=== PATIENT | female | born 1955 | race American Indian/Alaskan Native ===

== ENCOUNTER 2018-05-21 21:53 | Emergency (ER) | payer OTHER ==
[~2018-05-21] VITALS: Ht 154.9 cm; Wt 72.6 kg
[2018-05-21 21:53] VITALS: BP_SYST 154
[2018-05-21 22:20] LABS: BILIRUBIN,URINE NEGATIVE (NEGATIVE); CLARITY/URINE SL HAZY (CLEAR); COLOR,URINE YELLOW (YELLOW); GLUCOSE,URINE 3+ (NEGATIVE); KETONES,URINE NEGATIVE (NEGATIVE); LEUKOCYTE ESTERASE ,URINE NEGATIVE (NEGATIVE); NITRITE, URINE NEGATIVE (NEGATIVE); PH,URINE 7.5 (5.0-8.0); PROTEIN URINE 3+ (NEGATIVE); UROBILINOGEN,URINE 0.2 (0.2-1.0)
[2018-05-21 22:21] LABS: BLOOD, URINE TRACE (NEGATIVE)
[2018-05-21 22:32] LABS: BACTERIA,URINE FEW /HPF (None Seen); MUCUS,URINE 1+ /LPF (None Seen)
[2018-05-21 22:32] LABS: CREATININE 4.65 mg/dL (0.55-1.30); POTASSIUM 4.2 mmol/L (3.5-5.1)
[2018-05-21 22:34] LABS: BASOPHILS % (AUTO) 0.4 % (0.0-2.0); EOSINOPHILS # (AUTO) 0.3 K/uL (0.0-0.4); EOSINOPHILS % (AUTO) 5.1 % (0.0-4.0); HEMATOCRIT 34.1 % (36-48); HEMOGLOBIN 11.3 g/dL (12.0-16.0); MEAN CORPUSCULAR HEMOGLOBIN 29 pg (27-31); MEAN CORPUSCULAR HGB CONC 33 % (32-36); MEAN CORPUSCULAR VOLUME 87 fL (79.0-98.0); MONOCYTES # (AUTO) 0.7 K/uL (0.0-1.0); MONOCYTES % (AUTO) 11.2 % (1.7-9.3); NEUTROPHILS # (AUTO) 4.1 K/uL (1.8-7.7); NEUTROPHILS % (AUTO) 66.3 % (40.0-70.0); PLATELET COUNT (AUTO) 185 K/uL (130-430); RED BLOOD CELL COUNT(AUTO) 3.92 MIL/uL (4.2-6.2); RED CELL DISTRIBUTION WIDTH 13.8 % (9.0-15.0); WHITE BLOOD COUNT (AUTO) 6.1 K/uL (4.8-10.8)
[2018-05-21] MEDS ORDERED: FURO-149 PO (22:35)
[2018-05-21] MEDS ORDERED: CYCL-10 PO (22:35)
[2018-05-21] MEDS ORDERED: CLOP300T2 PO (22:35)
[2018-05-21] MEDS ORDERED: HYDR-4272 PO (22:35)
[2018-05-21] MEDS ORDERED: COR25 PO (22:35)
[2018-05-21] MEDS ORDERED: ISOS30TA6 PO (22:35)
[2018-05-21] MEDS ORDERED: LIP80 PO (22:35)
[2018-05-21] MEDS ORDERED: CALC667T5 PO (22:35)
[2018-05-21 22:36] LABS: INR 1.1 (0.8-1.2); PROTHROMBIN TIME 10.9 SECS (9.5-12.5)
[2018-05-21 22:39] LABS: TOTAL BILIRUBIN 0.7 mg/dL (0.0-1.0)
[2018-05-21 23:05] LABS: CKMB RELATIVE INDEX 0.6 (0.0-2.9); CREATINE KINASE MB 1.6 ng/mL (0-3.6)
[2018-05-21] MEDS ORDERED: NACL 0.9% 500 ML IV ONE (23:30)
[2018-05-21] MEDS ORDERED: MORPHINE 4 MG/ML INJ. SYRINGE IVP ONE (23:30)
[2018-05-22] MEDS ORDERED: METOPROLOL TARTRATE 5 MG/5 ML VIAL IVP ONE (02:15)
[2018-05-22 02:48] VITALS: BP_SYST 172
== END 2018-05-22 02:48 | disposition short-term general hospital (02) ==
LOC: SED 21:53
DX: K85.90 Acute pancreatitis without necrosis or infection, unspecified (principal); I25.2 Old myocardial infarction; I12.0 Hypertensive chronic kidney disease with stage 5 chronic kidney disease or end stage renal disease; N18.6 End stage renal disease; Z86.73 Personal history of transient ischemic attack (TIA), and cerebral infarction without residual deficits; Z91.040 Latex allergy status; Z88.6 Allergy status to analgesic agent; Z88.8 Allergy status to other drugs, medicaments and biological substances; Z79.899 Other long term (current) drug therapy
CPT/HCPCS: 36415; 71045; 80053; 81000; 82550; 82553; 83690; 83880; 84484; 85025; 85610; 85730; 87086; 93005; 96374; 99285; J2270; J3490; J7040

== ENCOUNTER 2018-10-22 00:42 | Emergency (ER) | payer OTHER ==
[~2018-10-22] VITALS: Ht 154.9 cm; Wt 68.0 kg
[~2018-10-22 00:42] MED LIST: CALC667T5 PO; CLOP300T2 PO; COR25 PO; CYCL-10 PO; FURO-149 PO; HYDR-4272 PO; ISOS30TA6 PO; LIP80 PO
[2018-10-22 00:45] VITALS: BP_SYST 164
--- NOTE | 2018-10-22 00:45 | NUR ---
0045 - Patient to ER bed 2 to gown for evaluation. Side rails up. Report given to [facility] [place]. Per EMS, pt is from home, having LUQ pain, radiates to left flank. Hx of pancreatitis, and current pain feels same, 06/12. A&OX4.
--- NOTE | 2018-10-22 00:50 | NUR ---
Pt report received. Pt c/o pain that starts from left upper side and radiates to right lower side and back. Pt also c/o cramping to left calf. Pain onset at 2300 while at home. Denies C/P or SOB, no N/V/D. VSS.
--- NOTE | 2018-10-22 01:20 | NUR ---
Dr. Slaughter at bedside to assess pt.
--- NOTE | 2018-10-22 02:15 | NUR ---
Pt resting quietly with eyes closed, respirations even and non-labored, NAD. VSS.
[2018-10-22] MEDS ORDERED: NACL 0.9% 1,000 ML IV ONE (02:21)
--- NOTE | 2018-10-22 03:05 | NUR ---
Pt resting quietly, easily awakened, no needs verbalized at this time. VSS.
[2018-10-22 03:20] LABS: CALCIUM 8.3 mg/dL (8.4-11.0); POTASSIUM 4.6 mmol/L (3.5-5.1)
[2018-10-22 03:21] LABS: BASOPHILS % (AUTO) 0.6 % (0.0-2.0); EOSINOPHILS # (AUTO) 0.1 K/uL (0.0-0.4); EOSINOPHILS % (AUTO) 1.6 % (0.0-4.0); HEMATOCRIT 26.9 % (36-48); HEMOGLOBIN 8.8 g/dL (12.0-16.0); LYMPHOCYTES # (AUTO) 0.7 K/uL (1.0-5.5); MEAN CORPUSCULAR HEMOGLOBIN 29 pg (27-31); MEAN CORPUSCULAR HGB CONC 33 % (32-36); MEAN CORPUSCULAR VOLUME 88 fL (79.0-98.0); MONOCYTES # (AUTO) 0.6 K/uL (0.0-1.0); NEUTROPHILS # (AUTO) 6.4 K/uL (1.8-7.7); NEUTROPHILS % (AUTO) 80.8 % (40.0-70.0); PLATELET COUNT (AUTO) 149 K/uL (130-430); RED BLOOD CELL COUNT(AUTO) 3.07 MIL/uL (4.2-6.2); WHITE BLOOD COUNT (AUTO) 7.8 K/uL (4.8-10.8)
[2018-10-22 03:26] LABS: ALBUMIN 2.8 g/dL (3.4-4.8)
--- NOTE | 2018-10-22 03:36 | NUR ---
Pt requests that her blood sugar be taken. Pt states that she took 27 Units of fast acting Humalin R Insulin at 2215 for a blood sugar of 536, but forgot to eat afterwards because of the sudden onset of pain that brought her to the ER.
--- NOTE | 2018-10-22 03:37 | NUR ---
Accucheck blood sugar 48. Pt non-diaphoretic, talks in clear and coherent sentences. Dr. Slaughter notified and D50 x 1 amp immediately administered.
[2018-10-22 03:43] LABS: CREATININE 8.1 mg/dL (0.55-1.30)
[2018-10-22] MEDS ORDERED: DEXTROSE 50% JECT 50 ML DISP.SYRIN ONE (03:48)
--- NOTE | 2018-10-22 03:49 | NUR ---
Pt states that she feels like her sugar is going back up, appears more alert.
--- NOTE | 2018-10-22 03:55 | NUR ---
Dr. Slaughter at bedside to assess pt.
[2018-10-22 04:00] LABS: INR 1.2 (0.8-1.2); PROTHROMBIN TIME 11.9 SECS (9.5-12.5)
--- NOTE | 2018-10-22 05:00 | NUR ---
Pt resting with eyes closed, even and non-labored respirations, VSS. NAD.
[2018-10-22] MEDS ORDERED: MORPHINE 4 MG/ML INJ. SYRINGE IVP ONE (05:15)
--- NOTE | 2018-10-22 06:28 | NUR ---
Call back from [facility], spoke with Babar. Pt accepted to [facility] under the services of Sergey Ugarte ALS transport will be provided with ETA 07:15. Report to be called to [phone].
[2018-10-22 07:30] VITALS: BP_SYST 167
--- NOTE | 2018-10-22 07:30 | NUR ---
Patient to be transferred to [facility]. Is being transferred due to higher level of care. Receiving facility has accepting physician and available space. ER physician has signed transfer form. Patient or responsible alliance party has agreed to transfer and signed form. Patient belongings inventoried and will be sent with patient. Copy of nursing notes, lab reports, EKG, Physicians Orders and X-rays to be sent with patient. Report called to Michelle at receiving facility. Receiving physician is Dr. Castillo. Pt leaves ER in c/o ALS transport in stable condition.
== END 2018-10-22 07:30 | disposition short-term general hospital (02) ==
LOC: SED 00:42
DX: K85.90 Acute pancreatitis without necrosis or infection, unspecified (principal); I25.2 Old myocardial infarction; I10 Essential (primary) hypertension; Z86.73 Personal history of transient ischemic attack (TIA), and cerebral infarction without residual deficits; Z88.6 Allergy status to analgesic agent; Z88.8 Allergy status to other drugs, medicaments and biological substances; Z91.040 Latex allergy status; Z79.899 Other long term (current) drug therapy
CPT/HCPCS: 36415; 74176; 80053; 82150; 82962; 83690; 85025; 85610; 96374; 99285; J2270; J7030

== ENCOUNTER 2022-07-20 10:39 | Emergency (ER) | payer OTHER ==
[~2022-07-20] VITALS: Ht 162.6 cm; Wt 68.0 kg
[~2022-07-20 10:39] MED LIST changes: -CALC667T5 PO; +CALC667T6 PO; -CYCL-10 PO; +CYCL10TA24 PO; -ISOS30TA6 PO; +ISOS30TA85 PO
[2022-07-20 10:51] VITALS: BP_SYST 170
[2022-07-20] MEDS ORDERED: VITAMIN E PO (11:12)
[2022-07-20] MEDS ORDERED: CLON0.1P2 TP (11:12)
[2022-07-20] MEDS ORDERED: LORA10TA68 PO (11:12)
[2022-07-20] MEDS ORDERED: TERA1CAP4 PO (11:12)
[2022-07-20] MEDS ORDERED: ERGO500020 PO (11:12)
[2022-07-20] MEDS ORDERED: HYDR-4037 PO (11:12)
[2022-07-20] MEDS ORDERED: GABA-529 PO (11:12)
[2022-07-20] MEDS ORDERED: GUAI5SYR PO (11:12)
[2022-07-20] MEDS ORDERED: MVI PO (11:12)
[2022-07-20] MEDS ORDERED: PEPTAB PO (11:12)
[2022-07-20] MEDS ORDERED: NPH,100V SUBCUT (11:12)
[2022-07-20] MEDS ORDERED: INSU100V7 SUBCUT (11:12)
--- NOTE | 2022-07-20 11:20 | NUR ---
DR. PRECIADO AT BEDSIDE TO ASSESS PT.
--- NOTE | 2022-07-20 11:26 | NUR ---
RECEIVED PT FROM [facility] [place]. PT IS AAOX1 TO SELF, CAN ANSWER SIMPLE QUESTIONS. PT BIBA ACLS FOR ALOC, PT IS NORMALLY AAOX3 AT BASELINE. PT WAS GETTING DIALYSIS TREATMENT, ABOUT 15 MINUTES LEFT IN TREATMENT WHEN NURSE NOTICED PT WAS HAD ALOC. RESP E/U. ON R/A. NORMAL S1S2 NOTED. DENIES N/V/D/C. ABDOMEN SOFT, NONTENDER, NONDISTENDED. SKIN CDI, WARM, NO EDEMA. PERIPHERAL PULSES NORMAL. PT HAS A/V SHUNT TO LLA. COVERED WITH CDI DRESSING. PT DENIES PAIN.
--- NOTE | 2022-07-20 11:45 | NUR ---
# 20 gauge angiocath placed to RAC. Use of asceptic technique. Opsite placed over site. Blood return noted. Blood for lab drawn from site. Flushed with 10 cc of normal saline. No evidence of infiltration noted. Patient tolerated well.
[2022-07-20 11:47] LABS: BASOPHILS % (AUTO) 0.2 % (0.0-2.0); EOSINOPHILS # (AUTO) 0.1 K/uL (0.0-0.4); EOSINOPHILS % (AUTO) 2.5 % (0.0-4.0); HEMATOCRIT 32.7 % (36-48); LYMPHOCYTES # (AUTO) 0.4 K/uL (1.0-5.5); LYMPHOCYTES % (AUTO) 13.1 % (20.5-51.5); MEAN CORPUSCULAR HEMOGLOBIN 30 pg (27-31); MEAN CORPUSCULAR HGB CONC 34 % (32-36); MEAN CORPUSCULAR VOLUME 90 fL (79.0-98.0); MONOCYTES # (AUTO) 0.3 K/uL (0.0-1.0); MONOCYTES % (AUTO) 10.9 % (1.7-9.3); NEUTROPHILS # (AUTO) 2.1 K/uL (1.8-7.7); NEUTROPHILS % (AUTO) 73.3 % (40.0-70.0); PLATELET COUNT (AUTO) 70 K/uL (130-430); RED BLOOD CELL COUNT(AUTO) 3.65 MIL/uL (4.2-6.2); RED CELL DISTRIBUTION WIDTH 14.6 % (9.0-15.0); WHITE BLOOD COUNT (AUTO) 2.8 K/uL (4.8-10.8)
--- NOTE | 2022-07-20 11:50 | NUR ---
PT STATES SHE URINATES "A LITTLE", PER DR. PRECIADO PT STRAGHT CATH, BUT ONLY 5ML RETURN DARK YELLOW URINE WITH DARK BLOOD CLOTS OBTAINED. DR. PRECIADO MADE AWARE. EKG OBTAINED.
--- NOTE | 2022-07-20 12:00 | NUR ---
PT TAKEN TO C/T SCAN.
--- NOTE | 2022-07-20 12:11 | NUR ---
PT BACK FROM CT SCAN AND PLACED ON MONITOR.
[2022-07-20 12:33] LABS: ANION GAP 11 (5-15); CALCIUM 8.8 mg/dL (8.4-11.0); CHLORIDE 100 mmol/L (98-107); CREATININE 5.61 mg/dL (0.55-1.30); GLUCOSE 131 mg/dL (70-99); UREA NITROGEN, BLOOD 45 mg/dL (8-21)
[2022-07-20 12:42] LABS: ACETAMINOPHEN < 1 ug/mL (1-30); ALANINE AMINOTRANSFERASE 54 U/L (12-78); ALBUMIN 3.6 g/dL (3.4-4.8); ALCOHOL, BLOOD < 3 mg/dL (<10); ASPARTATE AMINOTRANSFERASE 37 U/L (10-37); FREE T4 (FREE THYROXINE) 1.1 ng/dL (0.6-1.6); GFR AFRICAN AMERICAN 10 mL/min (>90); TOTAL BILIRUBIN 1.2 mg/dL (0.0-1.0)
--- NOTE | 2022-07-20 12:44 | NUR ---
TROPONIN LEVEL REPORTED BY LAB OF 54. DR. PRECIADO MADE AWARE. NO NEW ORDER RECEIVED.
[2022-07-20] MEDS ORDERED: ASPIRIN 325 MG TABLET PO ONE (13:30)
--- NOTE | 2022-07-20 13:53 | NUR ---
REPORTED TO DR. PRECIADO PT'S B/P /. NNOS AT THIS TIME. CALLED PT'S SON/PERSON TO CONTACT TO MAKE HIM AWARE PT IS IN ER DEPT. LEFT MESSAGE, AWAITING CALL BACK.
--- NOTE | 2022-07-20 14:29 | NUR ---
REPORTED TO DR. GUPTA PT'S B/P 205/ (127). DR. GUPTA STATES HE ONLY ORDER A MEDICATION TO DECREASE THE B/P IF THE MAP IS + OR > 135. PT MADE AWARE. MED REC AND BELONGINGS COMPLETED.
--- NOTE | 2022-07-20 15:01 | NUR ---
SPOKE TO PT'S SON SAPNA, MADE HIM AWARE PT IS AWAITING TRANSFER BY [facility]. SAPNA STATED HE WILL BE COMING TO THE HOSPITAL SOON.
--- NOTE | 2022-07-20 15:03 | NUR ---
PT GIVEN PARTIAL BED BATH AND NEW GOWN AND BEDDING PLACED.
--- NOTE | 2022-07-20 15:36 | NUR ---
REPORTED TO DR. GUPTA PT'S SBP 200. RECEIVED ORDER FOR NITRO S/L X1 NOW. ORDER CARRIED OUT.
--- NOTE | 2022-07-20 15:44 | NUR ---
CALLED [facility] ([phone]) AND GAVE REPORT TO SOU[facility] SIGALA. PT TO TRANSFER AT 1615 TO TELEMETRY ROOM 4030.
[2022-07-20] MEDS ORDERED: NITROGLYCERIN 0.4 MG TAB.SUBL SL ONE (15:45)
--- NOTE | 2022-07-20 15:58 | NUR ---
PT GIVEN NITRO 0.4MG S/L FOR SBP 196. ENDORSED ALL CARE TO [facility]. ALL QUESTIONS AND CONCERNS ADDRESSED.
[2022-07-20 16:53] VITALS: BP_SYST 185
--- NOTE | 2022-07-20 16:57 | NUR ---
PT TO TRANSFER TO [facility]. PT BP ELEVATED. [facility] [place] CALLED REPORT TO [facility]. [facility] [place] REPORTED GIVING PT NITROGLYCERIN SL BEFORE TRANSFER TO ICU BUT DID NOT CHART MED. KIRSTY NOTED, PT'S SON AT BS AT TIME OF TRANSFER. EMS WITH [facility] PLACED PT ON THEIR GURNEY AND REMOVED PT FROM HOSPITAL. PT'S SON TOOK ALL OF PT'S BELONGINGS. CONDITION GUARDED AT TIME OF TRANSFER.
== END 2022-07-20 16:57 | disposition short-term general hospital (02) ==
LOC: SED 10:39
DX: I21.4 Non-ST elevation (NSTEMI) myocardial infarction (principal); G93.40 Encephalopathy, unspecified; I10 Essential (primary) hypertension; Z79.899 Other long term (current) drug therapy; Z20.822 Contact with and (suspected) exposure to COVID-19
CPT/HCPCS: 99285; 70450; 71045; 87426; 80053; 84439; 85025; 84484; 36415; 93005; 76376; G0482; G0480; G0481

== ENCOUNTER 2023-01-09 09:31 | Emergency (ER) | payer MEDICARE ==
[~2023-01-09] VITALS: Ht 162.6 cm; Wt 72.6 kg
[~2023-01-09 09:31] MED LIST changes: +CLON0.1P2 TP; -CYCL10TA24 PO; +ERGO500020 PO; +GABA-529 PO; +GUAI5SYR PO; +HYDR-4037 PO; -HYDR-4272 PO; +INSU100V7 SUBCUT; +LORA10TA68 PO; +MVI PO; +NPH,100V SUBCUT; +PEPTAB PO; +TERA1CAP4 PO; +VITAMIN E PO
[2023-01-09 09:36] VITALS: BP_SYST 192
[2023-01-09] MEDS ORDERED: cloNIDine HCL 0.1 MG TABLET PO ONE (10:15)
[2023-01-09] MEDS ORDERED: NITROGLYCERIN 1 INCH (GM) OINT. TP ONE (10:15)
[2023-01-09] MEDS ORDERED: ASPIRIN 81 MG TAB.CHEW PO ONE (10:15)
[2023-01-09] MEDS ORDERED: NITROGLYCERIN 1 INCH (GM) OINT. ONE (10:57)
[2023-01-09 10:58] LABS: CALCIUM 8.5 mg/dL (8.4-11.0); CREATININE 5.5 mg/dL (0.55-1.30)
[2023-01-09] MEDS ORDERED: ASPIRIN 81 MG TAB.CHEW ONE (11:02)
[2023-01-09 11:03] LABS: BASOPHILS # (AUTO) 0.1 K/uL (0.0-0.2); BASOPHILS % (AUTO) 1.1 % (0.0-2.0); EOSINOPHILS # (AUTO) 0.1 K/uL (0.0-0.4); EOSINOPHILS % (AUTO) 1.8 % (0.0-4.0); HEMATOCRIT 33.2 % (36-48); LYMPHOCYTES # (AUTO) 0.8 K/uL (1.0-5.5); LYMPHOCYTES % (AUTO) 13.5 % (20.5-51.5); MEAN CORPUSCULAR HEMOGLOBIN 31 pg (27-31); MEAN CORPUSCULAR HGB CONC 33 % (32-36); MEAN CORPUSCULAR VOLUME 94 fL (79.0-98.0); MONOCYTES # (AUTO) 0.5 K/uL (0.0-1.0); MONOCYTES % (AUTO) 7.9 % (1.7-9.3); NEUTROPHILS # (AUTO) 4.5 K/uL (1.8-7.7); NEUTROPHILS % (AUTO) 75.7 % (40.0-70.0); PLATELET COUNT (AUTO) 91 K/uL (130-430); RED BLOOD CELL COUNT(AUTO) 3.56 MIL/uL (4.2-6.2); RED CELL DISTRIBUTION WIDTH 14.5 % (9.0-15.0); WHITE BLOOD COUNT (AUTO) 5.9 K/uL (4.8-10.8)
[2023-01-09 11:04] LABS: ALBUMIN 3.3 g/dL (3.4-4.8); TOTAL BILIRUBIN 1.1 mg/dL (0.0-1.0)
[2023-01-09 14:16] VITALS: BP_SYST 181
== END 2023-01-09 14:18 | disposition short-term general hospital (02) ==
LOC: SED 09:31
DX: I13.2 Hypertensive heart and chronic kidney disease with heart failure and with stage 5 chronic kidney disease, or end stage renal disease (principal); N18.6 End stage renal disease; I50.9 Heart failure, unspecified; E11.22 Type 2 diabetes mellitus with diabetic chronic kidney disease; R07.2 Precordial pain; I25.10 Atherosclerotic heart disease of native coronary artery without angina pectoris; Z99.2 Dependence on renal dialysis; Z79.4 Long term (current) use of insulin; Z79.899 Other long term (current) drug therapy; Z88.6 Allergy status to analgesic agent; Z91.040 Latex allergy status; Z88.8 Allergy status to other drugs, medicaments and biological substances
CPT/HCPCS: 36415; 71045; 80053; 83880; 84484; 85025; 93005; 99291